=== PATIENT | female | born 1960 | race Caucasian/White ===

== ENCOUNTER 2016-10-02 04:57 | Emergency (ER) | payer OTHER ==
[2016-10-02] MEDS ORDERED: ONDANSETRON 4 MG/2ML 2 ML VIAL ONE (05:26)
[2016-10-02 05:38] LABS: ABSOLUTE NEUTROPHIL COUNT 2.7 K/mm3 (1.8-7.7); BASO # 0.1 K/mm3 (0.0-0.2); BASO % 0.7 % (0.2-1.0); EOS # 0.1 (0.0-0.5); EOS % 1.8 % (0.9-2.9); HEMATOCRIT 42.9 % (37.0-47.0); HEMOGLOBIN 14.4 gm/l (12.0-16.0); IMM NEUT% 0.3 % (0-1); LYMPH # 3.9 (1.0-4.8); LYMPH % 52.3 % (15-45); MEAN CELL VOLUME 90.3 fl (81.0-99.0); MEAN CORPUSCULAR HEMOGLOBIN 30.3 pg (27.0-31.0); MEAN CORPUSCULAR HGB CONC 33.6 g/dl (33.0-37.0); MEAN PLATELET VOLUME 9.2 fl (7.4-10.4); MONO # 0.6 (0.0-0.8); MONO % 8.5 % (4-12); NEUT % 36.4 % (43-75); PLATELET COUNT 314 K/mm3 (130-400); RED CELL DISTRIBUTION WIDTH 13.1 % (11.5-14.5)
[2016-10-02] MEDS ORDERED: LACTATED RINGERS 1,000 ML ONE (05:49)
[2016-10-02] MEDS ORDERED: HYDROMORPHONE HCL 0.5 MG/0.5 ML SYRINGE ONE (05:50)
[2016-10-02 05:55] LABS: ALB/GLOB RATIO 1.4 (>1.0); ALBUMIN 3.9 gm/dL (3.5-5.7); CALCIUM 9.1 mg/dL (8.6-10.3)
[2016-10-02 08:06] LABS: PH,URINE 6.5 (5.0-8.0); URINE BILIRUBIN NEGATIVE (NEGATIVE); URINE BLOOD NEGATIVE (NEGATIVE); URINE GLUCOSE (UA) NEGATIVE (NEGATIVE); URINE LEUKOCYTE ESTERASE NEGATIVE (NEGATIVE); URINE NITRITE NEGATIVE (NEGATIVE); URINE PROTEIN TRACE (NEGATIVE); URINE UROBILINOGEN NORMAL (0-1 mg/dl)
--- NOTE | 2016-10-02 08:11 | CT ---
ABD/PELVIS W/O CON COMPARISON: None HISTORY: Suprapubic pain for 3 hours in a 55-year-old female. Technique: Using a [employer] [address] scanner, images were obtained from the diaphragm to the floor the pelvis. No intravenous contrast. An automated dose reduction technique was used to minimize patient radiation dose. Dose: CTDIvol (mGy): 10.60 DLP(mGycm): 609.90 FINDINGS: Lung bases: There are 2 nodules: Right middle lobe 5.3 mm on image 5 and left lower lobe fissure based nodule 5.9 mm, image 10. Inferior mediastinum and heart: Normal Liver: Normal Gallbladder: Normal Bile ducts: Normal. Pancreas: Normal Spleen: Normal Adrenal glands: Normal Kidneys: Normal Ureters: Normal Urinary bladder: Normal Uterus and adnexa: Normal Blood vessels: Normal. Lymph nodes: Normal Stomach: Normal Duodenum: Normal Small intestine: Normal Appendix: Normal. Colon: Normal Abdominal wall and supporting musculature: Normal Bones: In the right pubic bone body, 14.4 mm x 11.2 mm round sclerotic lesion. It has benign imaging features. Minimal osteophytes at the margins of the symphysis pubis. IMPRESSION: 1. Normal CT abdomen and pelvis without contrast. Incidentally noted in the right pubic bone body, 14.4 x 11.2 mm round peripherally sclerotic lesion with benign imaging features. No follow-up is recommended. Minimal degenerative change at the symphysis pubis. Preliminary report by [facility] radiologist Jameel Gregorio MD 09/24/2016 at 07:34
[2016-10-02 08:21] LABS: URINE APPEARANCE CLEAR; URINE COLOR YELLOW
== END 2016-10-02 09:10 | disposition home or self-care (01) ==
LOC: ED 04:57
DX: R10.9 Unspecified abdominal pain (principal); R11.0 Nausea